=== PATIENT | female | born 1965 | race Caucasian/White ===

== ENCOUNTER 2021-03-18 23:11 | Emergency (ER) | payer BC ==
[~2021-03-18] VITALS: Ht 154.9 cm; Wt 71.2 kg
[2021-03-18 23:33] VITALS: BP 160/81
[2021-03-18] MEDS ORDERED: PROTONIX IV IV ONE (23:42)
[2021-03-18] MEDS ORDERED: NS 1000ML 1,000 ML ONE (23:42)
[2021-03-18] MEDS ORDERED: SUBLIMAZE ONE (23:42)
[2021-03-18] MEDS ORDERED: ZOFRAN ONE (23:42)
--- NOTE | 2021-03-18 23:46 | ER.PDOC ---
General Chief Complaint: Abdomen Pain Stated Complaint: ABD PAIN Time seen by MD: 23:25 Source: patient, family Exam Limitations: no limitations History of Present Illness Initial Comments This 55-year-old female comes to the emergency department after sudden onset of mid epigastric and upper abdominal pain at 9 PM tonight. It was associated with severe nausea but no vomiting. Patient has previously undergone gastric sleeve, hiatal hernia fundoplication, but still has a gallbladder with no history of fatty food intolerance or gallbladder colic. Patient also denies any chronic dyspepsia or GERD. She denies any recent new weight loss but since the gastric sleeve procedure several years ago she has lost over 100 pounds. She denies any heart problems. She does not have hypertension, diabetes, or hypercholesterolemia. Allergies: Coded Allergies: No Known Allergies (Unverified , 03/18/21) Vital Signs First Vital Signs Date Time Temp Pulse Resp B/P (MAP) Pulse Ox O2 Delivery O2 Flow Rate FiO2 03/18/21 23:33 97.8 54 16 03/18/21 23:33 160/81 (107) 97 Room Air Last Vital Signs Date Time Temp Pulse Resp B/P (MAP) Pulse Ox O2 Delivery O2 Flow Rate FiO2 03/19/21 01:02 97.8 70 18 140/77 (98) 98 Room Air Past Medical History Medical History: other (Systemic lupus and fibromyalgia) Surgical History: gastric bypass, tubal LMP (females 10-50): postmenopause Family History Significant Family History: no pertinent family hx Social History Smoking: non-smoker Alcohol Use: none Drug Use: none Constitutional: see HPI EENTM: no symptoms reported Respiratory: no symptoms reported Cardiovascular: see HPI Gastrointestinal: see HPI Genitourinary: see HPI Musculoskeletal: back pain, joint pain; denies joint swelling, denies muscle stiffness Skin: no symptoms reported Psychiatric/Neurological: no symptoms reported Endocrine: no symptoms reported Hematologic/Lymphatic: no symptoms reported Physical Exam General Appearance: WD/WN, Mild Distress, Other (Patient is pale but not diaphoretic) HEENT: PERRL/EOMI, Pharynx Normal Neck: Non-Tender, Full Range of Motion, Supple Respiratory: chest non-tender, lungs clear, normal breath sounds, no respiratory distress, no accessory muscle use Cardiovascular: Normal Peripheral Pulses, Regular Rate, Rhythm, No Edema, No Gallop, No JVD, No Murmur Gastrointestinal: Normal Bowel Sounds, Soft, Guarding, Tenderness, Other (Patient has positive Sullivan sign and tenderness over the entire upper abdomen worse over the right upper quadrant. She has minimal lower abdominal tenderness. Negative flank pain to percussion. No borborygmi or high-pitched bowel sounds. No abdominal distention. Laparoscopic port scars all well-healed without erythema. 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, No Motor/Sensory Deficits, Alert, Normal Mood/Affect, Oriented x 3 Skin: Normal Color, Warm/Dry Lymphatic: No Adenopathy Results/Orders Results/Orders Orders - LIZZY RICHARDSON MD Cbc With Auto Diff (03/18/21 23:36) Comprehensive Metabolic Panel (03/18/21 23:36) Amylase (03/18/21 23:36) Lipase (03/18/21 23:36) Helicobacter Pylori (03/18/21 23:36) Urinalysis (03/18/21 23:36) Saline Lock (03/18/21 23:36) Ct Abd/Pel With Iv Contrast (03/18/21 23:36) 0.9 % Sodium Chloride (Ns 1000ml) (03/19/21 00:00) Fentanyl Citrate/Pf (Sublimaze) (03/19/21 00:00) Ondansetron Hcl/Pf (Zofran) (03/19/21 00:00) Esomeprazole Sodium (Nexium I.V.) (03/19/21 00:00) 0.9 % Sodium Chloride (Ns 1000ml) (03/18/21 23:42) Pantoprazole Sodium (Protonix Iv) (03/18/21 23:42) Ondansetron Hcl/Pf (Zofran) (03/18/21 23:42) Fentanyl Citrate/Pf (Sublimaze) (03/18/21 23:42) C-Reactive Protein (03/18/21 23:47) Ekg-Routine (03/18/21 23:47) Ketorolac Tromethamine (Toradol) (03/19/21 00:30) Ketorolac Tromethamine (Toradol) (03/19/21 00:05) Vital Signs Date Time Temp Pulse Resp B/P (MAP) Pulse Ox O2 Delivery O2 Flow Rate FiO2 03/19/21 01:02 97.8 70 18 140/77 (98) 98 Room Air 03/18/21 23:33 97.8 54 16 97 03/18/21 23:33 97.8 54 16 160/81 (107) 97 Room Air 03/18/21 23:33 97.8 54 16 Administered Medications Medications (Trade) Dose Ordered Sig/Kaitlin Route PRN Reason Start Time Stop Time Status Last Admin Dose Admin Esomeprazole Magnesium (Nexium I.v.) 40 mg OT IV 03/19/21 00:00 04/18/21 00:00 03/18/21 23:48 40 MG Fentanyl Citrate (Sublimaze) 50 mcg STAT ONCE IV 03/19/21 00:00 03/19/21 00:01 DC 03/18/21 23:48 50 MCG Ketorolac Tromethamine (Toradol) 15 mg STAT PRN IV PAIN 4 - 6 03/19/21 00:30 03/24/21 00:29 03/19/21 00:05 15 MG Ondansetron HCl (Zofran) 4 mg STAT PRN IV NAUSEA / VOMITING 03/19/21 00:00 04/18/21 00:00 03/18/21 23:49 4 MG Sodium Chloride 1,000 ml @ 1,200 mls/hr Q50M ONCE IV 03/19/21 00:00 03/19/21 00:49 DC 03/18/21 23:48 1,200 MLS/HR Laboratory Tests Test 03/18/21 23:30 03/19/21 01:15 White Blood Count 7.5 10^3/uL (4.5-11.0) Red Blood Count 4.03 10^6/uL (4.00-5.20) Hemoglobin 12.6 g/dL (12.0-15.0) Hematocrit 38.2 % (36.0-46.0) Mean Corpuscular Volume 94.8 fL (78-100) Mean Corpuscular Hemoglobin 31.3 pg (26-34) Mean Corpuscular Hemoglobin Concent 33.0 g/dL (33-36.5) Red Cell Distribution Width 14.5 % (11.5-14.5) Platelet Count 271 10^3/uL (150-400) Mean Platelet Volume 11.1 fL (7.8-11.0) H Neutrophils (%) (Auto) 58.4 % (41.0-85.0) Lymphocytes (%) (Auto) 27.4 % (24.0-44.0) Monocytes (%) (Auto) 9.0 % (5.0-12.0) Neutrophils # (Auto) 4.4 10^3/uL (1.8-7.7) Lymphocytes # (Auto) 2.05 10^3/uL1 (1.0-4.8) Monocytes # (Auto) 0.7 10^3/uL (0.3-0.8) Absolute Immature Granulocyte (auto 0.03 10^3 u/L (0-2) Absolute Eosinophils (auto) 0.3 10^3/uL (0.0-0.2) H Immature Granulocytes % 0.40 % (0.00-0.50) Eosinophils % 4.4 % (0.0-5.0) Basophils % 0.8 % (0.0-0.2) H Basophils # 0.1 10^3/uL (0.0-0.1) Sodium Level 146 mmol/L (132-145) H Potassium Level 3.0 mmol/L (3.6-5.2) L Chloride Level 108.0 mmol/L (96-109) Carbon Dioxide Level 23.7 mmol/L (20.0-32) Anion Gap 17.3 Blood Urea Nitrogen 13 mg/dL (7-18) Creatinine 1.03 mg/dL (0.59-1.40) Estimated GFR () 67.6 (>/=60) Est GFR (CKD-EPI)(Non-Afr [place]) 55.8 (>/=60) BUN/Creatinine Ratio 12.0 Glucose Level 112 mg/dL (70-110) H Calcium Level 9.1 mg/dL (8.4-10.5) Total Bilirubin 0.6 mg/dL (0.2-1.0) Aspartate Amino Transferase (AST) 48 U/L (0-35) H Alanine Aminotransferase (ALT) 23 U/L (12-78) Alkaline Phosphatase 85 U/L (50-136) C-Reactive Protein 0.91 mg/dL (0.00-5.00) Total Protein 7.5 g/dL (6.4-8.2) Albumin 3.9 g/dL (3.4-5.0) Globulin 3.6 Albumin/Globulin Ratio 1.083 Amylase Level 40 U/L (25-115) Lipase 126 U/L (114-286) Helicobacter pylori Screen NEGATIVE (NEGATIVE) Urine Collection Type RANDOM Urine Color YELLOW Urine Appearance CLEAR Urine Bilirubin NEGATIVE (NEGATIVE) Urine Ketones 15 mg/dL (NEGATIVE) H Urine Specific [place] 1.015 (1.005-1.030) Urine pH 5.5 (4.5-8.0) Urine Protein NEGATIVE (NEGATIVE) Urine Urobilinogen 0.2 E.U./dL (0.2) Urine Nitrate NEGATIVE (NEGATIVE) Urine Leukocyte Esterase NEGATIVE (NEGATIVE) Urine Glucose (Auto)(UA) NEGATIVE (NEGATIVE) Urine Blood NEGATIVE (NEGATIVE) Progress Progress The patient's CT scan of the abdomen and pelvis has just been resulted confirming calcified gallstones with no wall thickening or duct dilatation, showing normal small and large bowel wall caliber with no obstruction process and diverticular changes noted without diverticulitis. No pneumatosis. No free air. The lungs are clear and there are no other abnormalities to explain the abdominal pain. Appendix is not visualized. Stomach misty are noted and consistent with history of gastric sleeve. At the present time the white count is normal, the chemistries are normal, amylase and lipase are normal, liver functions are normal, and patient has no anemia. Patient gives history of systemic lupus but her C-reactive protein is normal so the her autoimmune disease is quiescent. Patient is stable for discharge and advised to follow-up with her physician. She did get good pain relief with Toradol and fentanyl. She is on chronic pain management with naltrexone. ER DEPART Departure Time of Disposition: 02:17 Disposition: 01 HOME, SELF-CARE Impression: Primary Impression: Abdominal pain Additional Impressions: Cholelithiasis without cholecystitis Chronic pain syndrome Condition: Improved Referrals: PCP,UNKNOWN (PCP) PRIMARY CARE PROVIDER Duration or Time Spent with Pa: 25 minutes including 2 rechecks and counseling for follow-up Return to Work/School Can a patient return to work?: No Problem Qualifiers Primary Impression: Abdominal pain Abdominal location: epigastric Qualified Codes: R10.13 - Epigastric pain LIZZY RICHARDSON MD March 18, 2021 23:46
[2021-03-18] MEDS: NEXIUM I.V. IV SCH (23:48)
[2021-03-18] MEDS: SUBLIMAZE IV ONE (23:48)
[2021-03-18] MEDS: NS 1000ML 1,000 ML IV ONE (23:48)
[2021-03-18] MEDS: ZOFRAN IV PRN (23:49)
--- NOTE | 2021-03-18 23:58 | PCM.EKG ---
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
[2021-03-19] MEDS: TORADOL IV PRN (00:05)
[2021-03-19] MEDS ORDERED: TORADOL ONE (00:05)
[2021-03-19 00:10] LABS: BASOPHIL # 0.1 10^3/uL (0.0-0.1); BASOPHIL % 0.8 % (0.0-0.2); EOSINOPHIL # 0.3 10^3/uL (0.0-0.2); EOSINOPHIL % 4.4 % (0.0-5.0); LYMPHOCYTES # 2.05 10^3/uL1 (1.0-4.8); LYMPHOCYTES % 27.4 % (24.0-44.0); MEAN CORP HGB 31.3 pg (26-34); MONOCYTES # 0.7 10^3/uL (0.3-0.8); NEUTROPHIL # 4.4 10^3/uL (1.8-7.7); NEUTROPHILS % 58.4 % (41.0-85.0); PLATELET COUNT 271 10^3/uL (150-400); RED CELL DISTRIBUTION WIDTH 14.5 % (11.5-14.5)
[2021-03-19 00:29] LABS: CALCIUM 9.1 mg/dL (8.4-10.5); CARBON DIOXIDE 23.7 mmol/L (20.0-32)
--- NOTE | 2021-03-19 00:31 | NUR ---
CT PATIENT TAKEN TO CT VIA STRETCHER.
--- NOTE | 2021-03-19 00:43 | NUR ---
BACK FROM CT RECONNECTED TO BEDSIDE MONITOR.
[2021-03-19 01:02] VITALS: BP 140/77
[2021-03-19 01:44] LABS: BILIRUBIN,URINE NEGATIVE (NEGATIVE); UA COLOR YELLOW; UROBILINOGEN,URINE 0.2 E.U./dL (0.2)
--- NOTE | 2021-03-19 02:08 | DIREP ---
PROCEDURE:CT ABDOMEN/PELVIS W/ CONTRAST COMPARISON:None. INDICATIONS:epigastric pain with nausea, s/p gastric sleeve TECHNIQUE:Axial images were created through the abdomen and pelvis with non-ionic intravenous contrast material. No oral contrast was administered. Sagittal and coronal reconstructions were performed from source images. FINDINGS: LUNG BASES:Normal. No visible pulmonary or pleural disease. LIVER:Normal. No significant liver lesions are identified. BILIARY:Multiple small calcified gallstones are seen within the gallbladder. No gallbladder wall thickening or pericholecystic fluid. No biliary ductal dilatation. PANCREAS:Normal. No lesion, fluid collection, ductal dilatation, or atrophy. SPLEEN:Normal. No enlargement or focal lesion. ADRENALS:Normal. No mass or enlargement. URINARY TRACT:Small exophytic cyst involving the lower pole the left kidney. AORTA/VASCULAR:Normal. No aneurysm. RETROPERITONEUM:Normal. No mass or adenopathy. BOWEL/MESENTERY:Sutures associated with the stomach. The small bowel is normal caliber. Terminal ileum is unremarkable. Appendix is not identified. There are few scattered colonic diverticula. No evidence of diverticulitis. ABDOMINAL WALL:Normal. No mass or hernia. PELVIC ORGANS:Normal. No visible mass. Pelvic organs appropriate for patient age. BONES:Normal for age. No bony lesion or acute fracture. OTHER:Negative. CONCLUSION: 1. Colonic diverticular without evidence of diverticulitis. 2. Cholelithiasis without evidence of acute cholecystitis. Dictated by: Agustin Torres MD on 03/19/2021 at 02:01 AM
== END 2021-03-19 02:33 | disposition home or self-care (01) ==
LOC: ER 23:11
DX: K80.20 Calculus of gallbladder without cholecystitis without obstruction (principal); G89.4 Chronic pain syndrome; M32.9 Systemic lupus erythematosus, unspecified; M79.7 Fibromyalgia; Z79.1 Long term (current) use of non-steroidal anti-inflammatories (NSAID); Z79.899 Other long term (current) drug therapy; Z98.84 Bariatric surgery status
CPT/HCPCS: 36415; 74177; 80053; 81003; 82150; 83690; 85025; 86140; 86677; 93005; 96361; 96374; 96375 ×2; 99285; C9113; J1885; J2405; J3010; J7030; Q9965